=== PATIENT | male | born 1985 | race Two or more races ===

== ENCOUNTER 2018-12-28 01:04 | Emergency (ER) | payer OTHER ==
[~2018-12-28] VITALS: Ht 172.7 cm; Wt 72.6 kg
[2018-12-28] MEDS ORDERED: TDAP DIPH,PERTUSS,TET VAC/PF 0.5 ML DISP.SYRIN IM ONE ×2 (01:30→01:43)
[2018-12-28] MEDS ORDERED: NEOMY/BACITRA/POLYMYXIN B OINT UD PACKET TP ONE ×2 (01:30→01:43)
--- NOTE | 2018-12-28 01:30 | NUR ---
Dr. Galo on phone with [facility].
--- NOTE | 2018-12-28 02:05 | NUR ---
Patient discharged to home in stable conditon. Written and verbal after care instructions given. Patient verbalizes understanding of instructions. Pt ambulated out of ER with steady gait, no acute signs of distress, VSS, all belongings taken.
[2018-12-28 02:28] VITALS: BP 112/75
== END 2018-12-28 02:29 | disposition home or self-care (01) ==
LOC: ER 01:15
DX: T20.40XA Corrosion of unspecified degree of head, face, and neck, unspecified site, initial encounter (principal); Y93.89 Activity, other specified; Y92.89 Other specified places as the place of occurrence of the external cause; Y99.8 Other external cause status
CPT/HCPCS: 90715; A4663